=== PATIENT | male | born 1960 | race Caucasian/White ===

== ENCOUNTER → 2023-07-26 09:42 | Outpatient (REF) | payer OTHER, SELFPAY | LOC: HWRAD 09:42 | PROVIDERS: ATTENDING PHYSICIAN Student in an Organized Health Care Education/Training Program | DX: F17.210 Nicotine dependence, cigarettes, uncomplicated (principal) | CPT/HCPCS: 71271 ==

== ENCOUNTER → 2023-08-27 06:37 | Day surgery (SDC) | payer OTHER, SELFPAY | LOC: GI 06:37 | PROVIDERS: ATTENDING PHYSICIAN Internal Medicine | DX: Z12.11 Encounter for screening for malignant neoplasm of colon (principal); K57.30 Diverticulosis of large intestine without perforation or abscess without bleeding; D12.0 Benign neoplasm of cecum; D12.2 Benign neoplasm of ascending colon; D12.3 Benign neoplasm of transverse colon; D12.5 Benign neoplasm of sigmoid colon; D12.8 Benign neoplasm of rectum | CPT/HCPCS: 45385; 45381; 45380; 88305 ==

== ENCOUNTER 2023-09-17 06:32 | Day surgery (SDC) | payer OTHER, SELFPAY ==
[2023-09-17 10:10] VITALS: BMI 24.3
[2023-09-17 10:11] VITALS: BP 155/99; BMI 24.3
[2023-09-17 12:02] VITALS: BP 138/94
[2023-09-17 12:15] VITALS: BP 168/110
[2023-09-17 12:25] VITALS: BP 172/106
== END 2023-09-17 12:30 | disposition home or self-care (01) ==
LOC: SDS 06:32
PROVIDERS: ATTENDING PHYSICIAN Internal Medicine Gastroenterology
DX: C18.4 Malignant neoplasm of transverse colon (principal); D12.2 Benign neoplasm of ascending colon; D12.3 Benign neoplasm of transverse colon; D12.5 Benign neoplasm of sigmoid colon; K57.30 Diverticulosis of large intestine without perforation or abscess without bleeding; K64.0 First degree hemorrhoids
CPT/HCPCS: 45390; 45385; 88305; 88342

== ENCOUNTER → 2023-10-04 12:19 | Outpatient (REF) | payer OTHER, SELFPAY | LOC: HWRAD 12:19 | PROVIDERS: ATTENDING PHYSICIAN Surgery; FAMILY PHYSICIAN Student in an Organized Health Care Education/Training Program | DX: C18.9 Malignant neoplasm of colon, unspecified (principal) | CPT/HCPCS: 74177; Q9967 ==

== ENCOUNTER 2023-10-31 06:03 | Inpatient (IN) | payer OTHER, SELFPAY ==
[2023-10-23 08:33] VITALS: BMI 25.4
[2023-10-23 09:30] LABS: Hematocrit 42.3 % (39.0-52.0); Hemoglobin 14.3 g/dL (13.0-18.0); Mean Corp Hgb Conc. 33.8 g/dL (33.0-37.0); Mean Corpuscular Hgb 33.5 pg (27.0-31.0); Mean Corpuscular Volume 99.1 fL (80.0-94.0); Mean Platelet Volume 10.4 fL (7.4-10.4); Platelet Count 147 10^3/uL (130-400); Red Blood Cell Count 4.27 10^6/uL (4.70-6.10); Red Cell Dist. Width 13.1 % (11.5-14.5); White Blood Cell Count 7.1 10^3/uL (4.8-10.8)
[2023-10-23 09:34] LABS: INR 1.07; PT 13.9 Sec (11.4-14.6)
[2023-10-23 09:35] LABS: APTT 29.8 Sec (23.4-35.0)
[2023-10-23 10:24] LABS: ALT (SGPT) 19 U/L (0-50); AST (SGOT) 29 U/L (17-59); Albumin 4.6 g/dl (3.5-5.0); Alkaline Phosphatase 89 U/L (38-126); Blood Urea Nitrogen 12 mg/dl (9-20); Calcium 9.7 mg/dl (8.4-10.2); Carbon Dioxide 25 mmol/L (22-30); Chloride 103 mmol/L (98-107); Estimated Creatinine Clearance 90 ml/min; Glucose 88 mg/dl (70-99); Potassium 4.7 mmol/L (3.5-5.1); Sodium 138 mmol/L (135-145); Total Bilirubin 0.8 mg/dl (0.2-1.3); Total Protein 7.9 g/dl (6.3-8.2); eGFR > 60.00
[2023-10-23 11:09] LABS: Glycohemoglobin (HgbA1c) 5.5 % (4.0-5.6)
[2023-10-31] VITALS (11 sets, daily range): BP systolic 118–166; BP diastolic 73–96; BMI 26.0
[2023-10-31] MEDS: NEURONTIN 600 MG PO (06:37)
[2023-10-31] MEDS: ENTEREG 12 MG PO (06:37)
[2023-10-31] MEDS: TYLENOL 1000 MG PO (06:37)
[2023-10-31] MEDS: HEPARIN 5000 UNITS SC (06:39)
[2023-10-31] MEDS: NORMOSOL-R 1000 IV ×2 (07:00→15:00)
--- NOTE | 2023-10-31 14:01 | W.IMMPOSTOP ---
Addendum entered and electronically signed by Kevin Salgado MD 10/31/23 14:31:
Updated pateint's [id number], Rosalba, via phone conversation.
Original Note:
Surgical Immed Post Op Note
-
Primary Surgeon: Marti Salgado MD
Assisting Surgeon: ANA Lucero
Pre-op Diagnosis: transverse colon cancer
Post-op Diagnosis: same
Procedure Performed: 1) robotic left colectomy 2) takedown splenic flexure
Anesthesia Type: general plus local
Specimen / Cultures: left colon with stitch marking likely former tumor site
Estimated Blood Loss: 150 cc
Complications: no immediate
Operative Findings: 1) distal transverse colon tattoo with associated mucosal puckering 2) no obvious intraperitoneal or liver metastases 3) friable tissues
Subramanian in bladder.
Will send to med surg.
Colon Resection
Colon Resection
Operation performed with curative intent: Yes
Tumor Location: Transverse Colon
Splenic Flexure Resection: Middle and ascending left colic
[2023-10-31 15:13] LABS: % Basophils 0.1 % (0-2); % Eosinophils 0.1 % (0-6); % Immature Granulocytes 0.4 % (0-0.5); % Monocytes 3.2 % (1.7-9.3); % Neutrophils 91.2 % (42.2-75.2); Absolute Lymphocytes 0.5 10^3/uL (1.2-3.4); Absolute Monocytes 0.3 10^3/uL (0.1-0.6); Absolute Neutrophils 9.1 10^3/uL (1.4-6.5); Hematocrit 39.9 % (39.0-52.0); Mean Corp Hgb Conc. 35.1 g/dL (33.0-37.0); Mean Corpuscular Volume 96.8 fL (80.0-94.0); Mean Platelet Volume 10.3 fL (7.4-10.4); Nucleated Red Blood Cells % 0 % (-); Platelet Count 169 10^3/uL (130-400); Red Blood Cell Count 4.12 10^6/uL (4.70-6.10); Red Cell Dist. Width 13.3 % (11.5-14.5)
[2023-10-31 15:14] LABS: Blood Urea Nitrogen 14 mg/dl (9-20); Calcium 8.2 mg/dl (8.4-10.2); Carbon Dioxide 25 mmol/L (22-30); Chloride 102 mmol/L (98-107); Estimated Creatinine Clearance 78 ml/min; Glucose 150 mg/dl (70-99); Magnesium 1.9 mg/dl (1.6-2.3); Sodium 136 mmol/L (135-145); eGFR > 60.00
[2023-10-31] MEDS: TORADOL 10 MG IV ×2 (15:40→21:32)
--- NOTE | 2023-10-31 15:52 | SUR.PHASEI ---
Patient stable in PACU, Unable to transfer as floor RN busy. Sean Negron BARIATRIC PROGRAM COORDINATOR.
--- NOTE | 2023-10-31 16:34 | PTCARENOTE ---
Pt arrived to [facility] from PACU s/p Robotic L colectomy. Pt has 3 lap sites, and 1 transverse on lower abdomen, all MARY and C/D/I. Subramanian draining clear, yellow urine, IVF infusing. Pt oriented to call hill and room, bed in lowest position and
locked, call hill within reach.
[2023-10-31] MEDS: TYLENOL 650 MG PO (17:04)
[2023-10-31] MEDS: TYLENOL PO ×2 (20:31→23:54)
[2023-11-01] VITALS (7 sets, daily range): BP systolic 134–187; BP diastolic 83–109; BMI 26.4
[2023-11-01] MEDS: TUMS 2 TABLET PO (03:42)
[2023-11-01] MEDS: NORMOSOL-R 1000 IV ×2 (03:42→14:54)
[2023-11-01] MEDS: TORADOL 10 MG IV ×4 (03:43→21:33)
[2023-11-01] MEDS: TYLENOL PO ×2 (03:45→16:59)
[2023-11-01 05:49] LABS: % Basophils 0.1 % (0-2); % Immature Granulocytes 0.2 % (0-0.5); % Lymphocytes 9.8 % (20.5-51.1); % Monocytes 7.5 % (1.7-9.3); % Neutrophils 82.4 % (42.2-75.2); Absolute Monocytes 0.8 10^3/uL (0.1-0.6); Absolute Neutrophils 8.7 10^3/uL (1.4-6.5); Hematocrit 35.6 % (39.0-52.0); Hemoglobin 12.8 g/dL (13.0-18.0); Mean Corpuscular Hgb 34.8 pg (27.0-31.0); Mean Corpuscular Volume 96.7 fL (80.0-94.0); Mean Platelet Volume 10.3 fL (7.4-10.4); Nucleated Red Blood Cells % 0 % (-); Platelet Count 149 10^3/uL (130-400); Red Blood Cell Count 3.68 10^6/uL (4.70-6.10); Red Cell Dist. Width 13.2 % (11.5-14.5); White Blood Cell Count 10.6 10^3/uL (4.8-10.8)
[2023-11-01 06:15] LABS: Blood Urea Nitrogen 18 mg/dl (9-20); Calcium 8.3 mg/dl (8.4-10.2); Carbon Dioxide 24 mmol/L (22-30); Chloride 103 mmol/L (98-107); Estimated Creatinine Clearance 95 ml/min; Glucose 115 mg/dl (70-99); Magnesium 2.2 mg/dl (1.6-2.3); Potassium 4.2 mmol/L (3.5-5.1); Sodium 136 mmol/L (135-145); eGFR > 60.00
[2023-11-01] MEDS: TYLENOL 650 MG PO ×3 (08:33→20:04)
[2023-11-01] MEDS: ENTEREG 12 MG PO ×2 (08:33→20:04)
[2023-11-01] MEDS: PROTONIX 40 MG PO (08:34)
[2023-11-01] MEDS: ZESTRIL 10 MG PO (08:34)
--- NOTE | 2023-11-01 10:13 | W.PN.CRS1 ---
Today's Communication / Plan
-
N.p.o. chips and sips
Incentive spirometry
Lovenox
DC Subramanian
Assessment/Plan
-
POD#1 1) robotic left colectomy 2) takedown splenic flexure
1. Vitals and labs normal.
2. Out of bed as tolerated.
3. Continue n.p.o. with chips and sips given belching.
4. Pain control: Tylenol and Toradol standing, Dilaudid as needed.
5. Discontinue Subramanian.
6. Lovenox to start tonight for DVT prophylaxis. Teds and SCDs in place.
7. OR pathology pending.
8. I have asked the nurse to encourage incentive spirometer as he is a smoker.
9. Continue IV fluids while NPO.
Subjective Data
Procedure
10/31/2023- 1) robotic left colectomy 2) takedown splenic flexure
Subjective Data
Date of Service: November 01, 2023
Patient states he is feeling okay. He has moderate pain. He is not that hungry. He has been burping a lot. He does not have bowel function yet.
Objective Data
-
Vital Signs
Temp Pulse Resp BP Pulse Ox
98.7 F 85 19 178/95 97
11/01/23 07:29 11/01/23 07:29 11/01/23 07:29 11/01/23 07:29 11/01/23 07:29
Intake & Output
10/31/23 11/01/23 11/02/23
06:59 06:59 06:59
Intake Total 303 / 303
Output Total 870 / 870
Balance -567 / -567
Intake:
Oral fluids 133 / 133
IV fluids (Total) 170 / 170
Normosol-R 1,000 ml @ 80 mls/hr 120 / 120
IV .[id number] [facility] Rx#:[id number]
norm 50 / 50
Output:
Urine, Subramanian 870 / 870
Lab Results
11/01/23 04:43
11/01/23 04:43
Physical Exam
-
General: No Acute Distress and AOx3
Abdomen: Soft, Non Distended and Non Tender
Incision: Clear, Dry, Intact
[2023-11-01] MEDS: ZOFRAN 4 MG IV (10:36)
--- NOTE | 2023-11-01 11:05 | CM ---
Met with patient at the bedside; initial assessment completed
[facility] [address]
Patient reported he lives with his significant other in a split level home; 10 steps to enter; 5 steps between floors; powder room on lower level of the home; bathroom on the upper level; bathroom has tub w/shower, grab bar and shower chair
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
DME: none
SNF/Home Health utilization history: none
Transportation: step-daughter will provide ride home
Plan: Discharge to home when medically stable; declined VN
[2023-11-01] MEDS: APRESOLINE 10 MG IV (13:14)
--- NOTE | 2023-11-01 16:35 | PTCARENOTE ---
Inserted a 16F [place] Sump NGT into Pt's right nare on second attempt. Pt started vomiting on first attempt. NGT draining clear pale brown fluid. Pt stated ' I am already feeling less nauseous, and have less pain'. Pt instructed on plan of care. Pt
verbalized understanding of instructions. Call hill is within reach. Will conintue to monitor closely. VSS, pt is afebrile.
[2023-11-01] MEDS: LOVENOX 40 MG SC (18:26)
--- NOTE | 2023-11-01 22:07 | PTCARENOTE ---
Pt ref to use IS, stated that was what precipitated vomiting earlier. Education provided regarding use of IS post op. Pt verbalized understanding but refused to use IS. Assessment ongoing.
[2023-11-02] MEDS: TYLENOL 650 MG PO ×2 (00:48→03:21)
[2023-11-02] MEDS: NORMOSOL-R 1000 IV ×2 (01:52→12:04)
[2023-11-02] MEDS: TORADOL 10 MG IV ×4 (03:20→22:16)
[2023-11-02 05:21] VITALS: BMI 24.7
[2023-11-02 07:40] LABS: % Basophils 0.1 % (0-2); % Immature Granulocytes 0.4 % (0-0.5); % Lymphocytes 10.9 % (20.5-51.1); % Monocytes 6.6 % (1.7-9.3); Absolute Immature Granulocytes 0.1 10^3/uL (0-0.05); Absolute Lymphocytes 1.2 10^3/uL (1.2-3.4); Absolute Monocytes 0.8 10^3/uL (0.1-0.6); Absolute Neutrophils 9.3 10^3/uL (1.4-6.5); Hematocrit 34.4 % (39.0-52.0); Hemoglobin 12.1 g/dL (13.0-18.0); Mean Corp Hgb Conc. 35.2 g/dL (33.0-37.0); Mean Corpuscular Hgb 33.5 pg (27.0-31.0); Mean Corpuscular Volume 95.3 fL (80.0-94.0); Mean Platelet Volume 10.5 fL (7.4-10.4); Nucleated Red Blood Cells % 0 % (-); Platelet Count 156 10^3/uL (130-400); Red Blood Cell Count 3.61 10^6/uL (4.70-6.10); Red Cell Dist. Width 13.5 % (11.5-14.5); White Blood Cell Count 11.3 10^3/uL (4.8-10.8)
[2023-11-02 07:54] VITALS: BP 144/89
[2023-11-02 07:54] LABS: Blood Urea Nitrogen 26 mg/dl (9-20); Calcium 8.9 mg/dl (8.4-10.2); Carbon Dioxide 35 mmol/L (22-30); Chloride 97 mmol/L (98-107); Estimated Creatinine Clearance 86 ml/min; Glucose 119 mg/dl (70-99); Potassium 3.4 mmol/L (3.5-5.1); Sodium 139 mmol/L (135-145); eGFR > 60.00
[2023-11-02] MEDS: PROTONIX IV 40 MG IV (08:15)
[2023-11-02] MEDS: NSS (PRESERVATIVE FREE) 10 ML IV (08:15)
[2023-11-02] MEDS: TYLENOL PO ×2 (08:18→12:04)
[2023-11-02] MEDS: ZESTRIL PO (08:36)
[2023-11-02] MEDS: ENTEREG PO ×2 (08:36→21:00)
--- NOTE | 2023-11-02 15:04 | W.PN.CRS1 ---
Addendum entered and electronically signed by Jaciel Wade MD 11/02/23 15:23:
I saw and examined the patient.
The Manager [employer]'s note was reviewed and I agree with the note.
Comment: NGT placed yesterday amanda for vomiting/belching. Nausea improved today with NGT to suction. Several liters drained. Feels better today. Abd exam approp, incisions cdi. Plan to cont NGT decompression for now, await ROBF. IVF/NPO, PRN
antiemetics and pain meds. K replaced.
Original Note:
Today's Communication / Plan
-
Continue NPO with NGT
Assessment/Plan
-
63 yo male with h/o transverse colon ca now POD #2 robotic left colectomy
AFVSS
h/h stable post operatively, mild dilutional acute anemia noted
Electrolyte abnormalities
Ileus present with placement of NGT yesterday evening for nearly 4L of output with improvement in pain and nausea s/p placement
Await bowel recovery, no passage of flatus as of yet
--NPO with NGT to suction
--Hold Po meds
--IV hydralazine prn HTN while off lisinopril
--Multimodal analgesics
--C/W IVF. Changed to D5 1/2 NSS with 40mEQ of Kcl given hypokalemia
--OOB/Ambulate. PT consulted
--PPI for GI ppx
--VTE ppx with lovenox sq and SCD's
Subjective Data
Procedure
10/31/2023- 1) robotic left colectomy 2) takedown splenic flexure
Subjective Data
Date of Service: November 02, 2023
Patient seen and examined at bedside with Dr. Wade. N/V late yesterday afternoon with hiccups: resolved since placement of NGT. No passage of flatus. Abdominal pain improved since passage of flatus. Reports dry mouth.
Objective Data
-
Vital Signs
Temp Pulse Resp BP Pulse Ox
98.3 F 89 18 144/89 94
11/02/23 07:54 11/02/23 07:54 11/02/23 07:54 11/02/23 07:54 11/02/23 07:54
Intake & Output
11/01/23 11/02/23 11/03/23
06:59 06:59 06:59
Intake Total 303 / 303 2720 / 2720
Output Total 870 / 870 5300 / 5300
Balance -567 / -567 -2580 / -2580
Intake:
Oral fluids 133 / 133 480 / 480
IV fluids (Total) 170 / 170 2120 / 2120
Normosol-R 1,000 ml @ 80 mls/hr 120 / 120
IV .[id number] [facility] Rx#:[id number]
norm 50 / 50
Amount instilled into GI Tube ( 120 / 120
Total)
[place] Sump 120 / 120
Output:
Gastrointestinal tube output ( 3700 / 3700
Total)
[place] Sump 3700 / 3700
Urine, Subramanian 870 / 870 350 / 350
Urine, Voided 1250 / 1250
Lab Results
11/02/23 07:11
11/02/23 07:10
Physical Exam
-
General: No Acute Distress and AOx3
Abdomen: Soft, Distended (mild), Non Tender and Other (NGT with light brown outputs)
Skin: Warm and Dry
Incision: Clear, Dry, Intact
[2023-11-02 15:52] VITALS: BP 151/88
[2023-11-02] MEDS: OFIRMEV 100 IV (16:00)
[2023-11-02] MEDS: D5/0.45%NSS with KCL 40 MEQ 1000 IV (16:05)
[2023-11-02] MEDS: LOVENOX 40 MG SC (17:29)
[2023-11-03] MEDS: OFIRMEV 100 IV ×3 (00:19→11:02)
[2023-11-03] MEDS: D5/0.45%NSS with KCL 40 MEQ 1000 IV ×3 (02:59→21:49)
[2023-11-03] MEDS: TORADOL 10 MG IV ×4 (04:24→21:49)
[2023-11-03 06:03] LABS: Hematocrit 30.3 % (39.0-52.0); Hemoglobin 10.7 g/dL (13.0-18.0); Mean Corp Hgb Conc. 35.3 g/dL (33.0-37.0); Mean Corpuscular Hgb 33.9 pg (27.0-31.0); Mean Corpuscular Volume 95.9 fL (80.0-94.0); Mean Platelet Volume 10.4 fL (7.4-10.4); Platelet Count 143 10^3/uL (130-400); Red Blood Cell Count 3.16 10^6/uL (4.70-6.10); Red Cell Dist. Width 13.4 % (11.5-14.5); White Blood Cell Count 9.5 10^3/uL (4.8-10.8)
[2023-11-03 06:21] LABS: Blood Urea Nitrogen 35 mg/dl (9-20); Calcium 8.5 mg/dl (8.4-10.2); Carbon Dioxide 31 mmol/L (22-30); Chloride 101 mmol/L (98-107); Estimated Creatinine Clearance 86 ml/min; Glucose 121 mg/dl (70-99); Potassium 3.8 mmol/L (3.5-5.1); Sodium 137 mmol/L (135-145); eGFR > 60.00
[2023-11-03] MEDS: ENTEREG PO ×2 (07:10→19:22)
[2023-11-03 07:41] VITALS: BP 132/85
[2023-11-03] MEDS: NSS (PRESERVATIVE FREE) 10 ML IV (08:22)
[2023-11-03] MEDS: PROTONIX IV 40 MG IV (08:22)
--- NOTE | 2023-11-03 12:38 | W.PN.CRS1 ---
Addendum entered and electronically signed by Jaciel Wade MD 11/03/23 12:49:
I saw and examined the patient.
The Eye[employer]'s note was reviewed and I agree with the note.
Comment: Passing flatus. Denies n/v. Exam with minimal distention, no ttp, incisions cdi. Will attempt clamp trial.
Original Note:
Today's Communication / Plan
-
Clamp trial of NGT
Assessment/Plan
-
63 yo male with h/o transverse colon ca now POD #3 robotic left colectomy
AFVSS
Mild acute anemia noted. Drift in h/h from 12.1 to 10.7 likely secondary to hemodilution and expected losses
Electrolyte abnormalities improved with change in IVF
Resolving ileus. NGT with light gastric outputs, now passing flatus
--Clamp trial of NGT today, if able to remove will provide with sips of clears
--Hold Po meds
--IV hydralazine prn HTN while off lisinopril
--Multimodal analgesics
--C/W IVF
--OOB/Ambulate
--PPI for GI ppx
--VTE ppx with lovenox sq and SCD's
Subjective Data
Procedure
10/31/2023- 1) robotic left colectomy 2) takedown splenic flexure
Subjective Data
Date of Service: November 03, 2023
Patient seen and examined at bedside with Dr. Wade. Denies n/v. Passed a little flatus overnight. No BM as of yet. Pain improving.
Objective Data
-
Vital Signs
Temp Pulse Resp BP Pulse Ox
98.8 F 82 16 132/85 96
11/03/23 07:41 11/03/23 07:41 11/03/23 07:41 11/03/23 07:41 11/03/23 08:00
Intake & Output
11/02/23 11/03/23 11/04/23
06:59 06:59 06:59
Intake Total 2720 / 2720 2680 / 2680 100 / 100
Output Total 5300 / 5300 2675 / 2675
Balance -2580 / -2580 5 / 5 100 / 100
Intake:
Oral fluids 480 / 480
IV fluids (Total) 2120 / 2120 2200 / 2200
IV piggybacks 300 / 300 100 / 100
Amount instilled into GI Tube ( 120 / 120 180 / 180
Total)
[place] Sump 120 / 120 180 / 180
Output:
Gastrointestinal tube output ( 3700 / 3700 1200 / 1200
Total)
[place] Sump 3700 / 3700 1200 / 1200
Urine, Subramanian 350 / 350
Urine, Voided 1250 / 1250 1475 / 1475
Other:
Number of approximated MODERATE 3
amounts of urine
Lab Results
11/03/23 05:25
11/03/23 05:25
Physical Exam
-
General: No Acute Distress and AOx3
Abdomen: Soft, Distended (mild), Non Tender and Other (NGT with light gastric outputs)
Skin: Warm and Dry
Incision: Clear, Dry, Intact
[2023-11-03 14:56] VITALS: BP 132/72
--- NOTE | 2023-11-03 15:58 | PTCARENOTE ---
NGT discontinued per nursing to place order; Patient denies nausea/vomiting at this time
[2023-11-03] MEDS: LOVENOX 40 MG SC (17:20)
[2023-11-03] MEDS: DILAUDID 0.25 MG IV (19:35)
[2023-11-03 23:29] VITALS: BP 144/98
[2023-11-03] MEDS: APRESOLINE 10 MG IV (23:38)
[2023-11-04 01:40] VITALS: BP 130/78
[2023-11-04] MEDS: DILAUDID 0.5 MG IV (02:07)
[2023-11-04] MEDS: TORADOL 10 MG IV ×4 (03:07→22:41)
[2023-11-04 05:15] VITALS: BMI 24.9
[2023-11-04] MEDS: ENTEREG PO (07:00)
[2023-11-04 07:11] VITALS: BP 147/96
[2023-11-04] MEDS: D5/0.45%NSS with KCL 40 MEQ 1000 IV ×2 (07:41→17:09)
[2023-11-04] MEDS: PROTONIX IV 40 MG IV (07:43)
[2023-11-04] MEDS: NSS (PRESERVATIVE FREE) 10 ML IV (07:43)
[2023-11-04] MEDS: DILAUDID 0.25 MG IV ×3 (07:50→23:00)
[2023-11-04 08:11] VITALS: BP 147/96
[2023-11-04 08:35] LABS: Hematocrit 37.6 % (39.0-52.0); Hemoglobin 13.3 g/dL (13.0-18.0); Mean Corp Hgb Conc. 35.4 g/dL (33.0-37.0); Mean Corpuscular Hgb 34.4 pg (27.0-31.0); Mean Corpuscular Volume 97.2 fL (80.0-94.0); Mean Platelet Volume 10.8 fL (7.4-10.4); Platelet Count 179 10^3/uL (130-400); Red Blood Cell Count 3.87 10^6/uL (4.70-6.10); Red Cell Dist. Width 13.2 % (11.5-14.5); White Blood Cell Count 10.1 10^3/uL (4.8-10.8)
[2023-11-04 09:20] LABS: Blood Urea Nitrogen 33 mg/dl (9-20); Calcium 9.1 mg/dl (8.4-10.2); Carbon Dioxide 24 mmol/L (22-30); Chloride 104 mmol/L (98-107); Estimated Creatinine Clearance 95 ml/min; Glucose 139 mg/dl (70-99); Potassium 4.2 mmol/L (3.5-5.1); Sodium 138 mmol/L (135-145); eGFR > 60.00
--- NOTE | 2023-11-04 10:35 | W.PN.CRS1 ---
Today's Communication / Plan
-
clears
increase diluadid to q3h prn
Assessment/Plan
-
63 yo male with h/o transverse colon ca now POD #4 robotic left colectomy
AFVSS
Hgb up to 13.1 from 10.7
NGT removed 11/02
--Advance diet to clears
--Okay for po meds
--IV hydralazine prn HTN while off lisinopril
--Multimodal analgesics - increase Dilaudid from q4 PRN to q3 PRN
--C/W IVF until tolerating clears
--OOB/Ambulate
--PPI for GI ppx
--VTE ppx with lovenox sq and SCD's
Subjective Data
Procedure
10/31/2023- 1) robotic left colectomy 2) takedown splenic flexure
Subjective Data
Date of Service: November 04, 2023
Patient states he still has some abdominal pain. He has no nausea or vomiting. He has bowel movements that are dark but no blood. He has flatus.
Objective Data
-
Vital Signs
Temp Pulse Resp BP Pulse Ox
98.5 F 93 18 147/96 96
11/04/23 07:11 11/04/23 07:11 11/04/23 07:11 11/04/23 07:11 11/04/23 08:00
Intake & Output
11/03/23 11/04/23 11/05/23
06:59 06:59 06:59
Intake Total 2680 / 2680 2530 / 2530
Output Total 2675 / 2675 75 / 75
Balance 5 / 5 2455 / 2455
Intake:
IV fluids (Total) 2200 / 2200 2400 / 2400
IV piggybacks 300 / 300 100 / 100
Amount instilled into GI Tube ( 180 / 180 30 / 30
Total)
[place] Sump 180 / 180 30 / 30
Output:
Gastrointestinal tube output ( 1200 / 1200 75 / 75
Total)
[place] Sump 1200 / 1200 75 / 75
Urine, Voided 1475 / 1475
Other:
Number of approximated SMALL 2
amounts of urine
Number of approximated MODERATE 3
amounts of urine
Number of approximated LARGE 2
amounts of urine
Lab Results
11/04/23 08:02
11/04/23 08:02
Physical Exam
-
General: No Acute Distress and AOx3
Abdomen: Soft, Non Distended and Non Tender
Skin: Warm and Dry
Incision: Clear, Dry, Intact
--- NOTE | 2023-11-04 14:29 | CM ---
Discharge Plan of Care: Home with no needs. Declined VN.
[2023-11-04 15:20] VITALS: BP 152/98
[2023-11-04] MEDS: APRESOLINE 10 MG IV ×2 (15:49→22:55)
[2023-11-04] MEDS: LOVENOX 40 MG SC (17:08)
[2023-11-04] MEDS: ENTEREG 12 MG PO (19:34)
[2023-11-04 23:10] VITALS: BP 161/98
[2023-11-05 01:26] VITALS: BP 150/86
[2023-11-05] MEDS: TORADOL 10 MG IV ×2 (03:06→11:07)
[2023-11-05] MEDS: D5/0.45%NSS with KCL 40 MEQ IV (03:11)
[2023-11-05 06:00] VITALS: BMI 25.4
[2023-11-05 06:07] LABS: % Basophils 0.4 % (0-2); % Eosinophils 4.6 % (0-6); % Immature Granulocytes 0.5 % (0-0.5); % Monocytes 11.8 % (1.7-9.3); % Neutrophils 65.7 % (42.2-75.2); Absolute Eosinophils 0.3 10^3/uL (0-0.7); Absolute Monocytes 0.7 10^3/uL (0.1-0.6); Absolute Neutrophils 3.7 10^3/uL (1.4-6.5); Hematocrit 34.4 % (39.0-52.0); Mean Corp Hgb Conc. 34.9 g/dL (33.0-37.0); Mean Corpuscular Hgb 34.7 pg (27.0-31.0); Mean Corpuscular Volume 99.4 fL (80.0-94.0); Mean Platelet Volume 11.2 fL (7.4-10.4); Nucleated Red Blood Cells % 0 % (-); Platelet Count 189 10^3/uL (130-400); Red Blood Cell Count 3.46 10^6/uL (4.70-6.10); Red Cell Dist. Width 13.4 % (11.5-14.5); White Blood Cell Count 5.7 10^3/uL (4.8-10.8)
[2023-11-05 06:37] LABS: Blood Urea Nitrogen 34 mg/dl (9-20); Calcium 8.7 mg/dl (8.4-10.2); Carbon Dioxide 23 mmol/L (22-30); Chloride 108 mmol/L (98-107); Estimated Creatinine Clearance 86 ml/min; Glucose 112 mg/dl (70-99); Potassium 4.7 mmol/L (3.5-5.1); Sodium 138 mmol/L (135-145); eGFR > 60.00
[2023-11-05 07:15] VITALS: BP 154/88
[2023-11-05] MEDS: NSS (PRESERVATIVE FREE) 10 ML IV (08:29)
[2023-11-05] MEDS: ENTEREG 12 MG PO ×2 (08:29→22:26)
[2023-11-05] MEDS: PROTONIX IV 40 MG IV (08:29)
--- NOTE | 2023-11-05 10:27 | W.PN.CRS1 ---
Today's Communication / Plan
-
fulls
restart lisinopril
Assessment/Plan
-
63 yo male with h/o transverse colon ca now POD #5 robotic left colectomy
AFVSS
NGT removed 11/02
--Advance diet to fulls
--Okay for po meds
--Restart lisinopril
--Multimodal analgesics - increase Dilaudid from q4 PRN to q3 PRN
--C/W IVF until tolerating clears
--OOB/Ambulate
--PPI for GI ppx
--VTE ppx with lovenox sq and SCD's
Subjective Data
Procedure
10/31/2023- 1) robotic left colectomy 2) takedown splenic flexure
Subjective Data
Date of Service: November 05, 2023
Patient states he has bowel movements. His pain is much better today. He tolerated clears. He is urinating without difficulty. He no longer has hiccups.
Objective Data
-
Vital Signs
Temp Pulse Resp BP Pulse Ox
98.0 F 96 18 154/88 96
11/05/23 07:15 11/05/23 07:15 11/05/23 07:15 11/05/23 07:15 11/05/23 08:00
Intake & Output
11/04/23 11/05/23 11/06/23
06:59 06:59 06:59
Intake Total 2530 / 2530 2700 / 2700
Output Total 75 / 75
Balance 2455 / 2455 2700 / 2700
Intake:
Oral fluids 1500 / 1500
IV fluids (Total) 2400 / 2400 1200 / 1200
IV piggybacks 100 / 100
Amount instilled into GI Tube ( 30 / 30
Total)
[place] Sump 30 / 30
Output:
Gastrointestinal tube output (
Total)
[place] Sump 75 /
Other:
Number of approximated SMALL 2
amounts of urine
Number of approximated MODERATE 3 2
amounts of urine
Number of approximated LARGE 2
amounts of urine
Lab Results
11/05/23 04:33
11/05/23 04:33
Physical Exam
-
General: No Acute Distress and AOx3
Abdomen: Soft, Non Distended and Non Tender
Skin: Warm and Dry
Incision: Clear, Dry, Intact
[2023-11-05] MEDS: ZESTRIL 10 MG PO (11:08)
--- NOTE | 2023-11-05 13:37 | CM ---
Discharge Plan of Care: Home with no needs. Declined VN services.
[2023-11-05 15:10] VITALS: BP 143/93
[2023-11-05] MEDS: APRESOLINE 10 MG IV (16:03)
[2023-11-05] MEDS: LOVENOX 40 MG SC (17:42)
[2023-11-05] MEDS: ROXICODONE 5 MG PO ×2 (17:44→23:36)
[2023-11-05 23:15] VITALS: BP 145/91
--- NOTE | 2023-11-06 04:28 | DOWNTIME ---
There was a [employer] Client [employer]osive Expert Downtime on 11/06/2023 from 0100 to 11/06/2023 at 0255. Downtime documentation of patient's care, including medication administrations, has been reconciled in the electronic record per guidelines. Refer to the
patient's paper chart under the miscellaneous tab to see printed paper medication records and downtime forms.
[2023-11-06 05:55] VITALS: BMI 25.7
[2023-11-06 06:00] VITALS: BMI 25.7
[2023-11-06 07:35] VITALS: BP 135/80
[2023-11-06] MEDS: PROTONIX IV 40 MG IV (07:36)
[2023-11-06] MEDS: ZESTRIL 10 MG PO (07:37)
[2023-11-06] MEDS: ENTEREG 12 MG PO (07:37)
[2023-11-06] MEDS: NSS (PRESERVATIVE FREE) 10 ML IV (07:37)
--- NOTE | 2023-11-06 09:34 | W.PN.CRS1 ---
Today's Communication / Plan
-
low residue
Assessment/Plan
-
63 yo male with h/o transverse colon ca now POD #6 robotic left colectomy
AFVSS
NGT removed 11/02
--Advance diet to low residue
--Okay for po meds
--Multimodal analgesics - increase Dilaudid from q4 PRN to q3 PRN
--C/W IVF until tolerating clears
--OOB/Ambulate
--PPI for GI ppx
--VTE ppx with lovenox sq and SCD's
-- Possible d/c home later today
Subjective Data
Procedure
10/31/2023- 1) robotic left colectomy 2) takedown splenic flexure
Subjective Data
Date of Service: November 06, 2023
Patient states his pain is controlled. He was bloated last night but it resolved. He has no nausea or vomiting. He is tolerating fulls and is hungry.
Objective Data
-
Vital Signs
Temp Pulse Resp BP Pulse Ox
98.4 F 86 14 135/80 96
11/06/23 07:35 11/06/23 07:35 11/06/23 07:35 11/06/23 07:35 11/06/23 08:00
Intake & Output
11/05/23 11/06/23 11/07/23
06:59 06:59 06:59
Intake Total 2700 / 2700 1260 / 1260
Balance 2700 / 2700 1260 / 1260
Intake:
Oral fluids 1500 / 1500 1260 / 1260
IV fluids (Total) 1200 / 1200
Other:
Number of approximated MODERATE 2 2 3
amounts of urine
Lab Results
11/05/23 04:33
11/05/23 04:33
Physical Exam
-
General: No Acute Distress and AOx3
Abdomen: Soft, Non Distended and Non Tender
Skin: Warm and Dry
Incision: Clear, Dry, Intact
--- NOTE | 2023-11-06 12:10 | CM ---
Addendum entered by Kyleigh Combs RN 11/06/23 14:52:
Pt tolerated diet.
DC to home
Declined VN .
Rosalba drove him home.
Home no needs .
Original Note:
Post op
Advanced to low residual diet . Will need to tolerate for dc.
Offered Vn he declined need.
Family to drive him home.
PLAN Home no needs
--- NOTE | 2023-11-06 13:17 | W.DCSUMMARY ---
Discharge Summary
Discharge Data
Date of Admission: 10/31/23
Date of Discharge: 11/06/23
-
Pending Results: Yes
Additional Pending Results:
pathology
Discharge Plan
-
Patient Disposition: Home (Routine Discharge)
Discharge Diagnosis/Procedures: robotic left colectomy
Diet: Low Residue
Activity: No strenuous activity
Additional Activity: No lifting over 10lbs (gallon of milk)
Driving Restrictions: Not until seen by your Dr
Bathing Restrictions: OK to Shower
Wound Care: Allow glue to naturally fall off. Do not pick at incisions.
Instructions: Low Fiber Diet
Referrals:
Kevin Salgado MD [Active] - in two weeks
Heri Vázquez MD, Resident [Family Provider] - in one to two weeks
Additional Discharge Medication Instructions: Tylenol or ibuprofen as needed for pain. Maximum dose of Tylenol is 4000 mg in 24 hours. Maximum dose of ibuprofen is 3200 mg in 24 hours.
Prescriptions:
New
oxycodone 5 mg tablet
5 mg PO Q6H PRN (Reason: Pain) Qty: 20 0RF
Continued
lisinopril 10 mg Tablet
10 mg PO DAILY
cholecalciferol (vitamin D3) [Vitamin D3] 125 mcg (5,000 unit) Tablet
125 mcg PO DAILY
mecobalamin (vitamin B12) [B12 Active] 1,000 mcg Tablet,Chewable
1,000 mcg PO DAILY
nicotine 21 mg/24 hr Patch 24 Hour
1 patch TRANSDERMAL DAILY
Discontinued
Sutab 1.479-0.188- 0.225 gram Tablet
0 tab PO DIRECTED
Rx Instructions:
pre surgery 10/31/2023. Last round of pills swallowed at 2200 10/31/23
Discharge Orders:
Discharge Patient (As Directed); Ordered 11/06/23
Ordered By: Adelina Anne
Discharge Date and Time
Print Language: Tajik
--- NOTE | 2023-11-06 13:19 | W.DS.TRANS ---
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
-
Discharge Instructions:
Sleep Apnea Risk Intermediate
Discharge Diagnosis/Procedures robotic left colectomy
Diet Low Residue
Activity No strenuous activity
Additional Activity No lifting over 10lbs (gallon of milk)
Driving Restrictions Not until seen by your Dr
Bathing Restrictions OK to Shower
Wound Care Allow glue to naturally fall off. Do not pick at
incisions.
Instructions: Low Fiber Diet
Stand-Alone Forms:
Changes to Home Medications: Yes
Discharge Medications:
DC Medications w/original date entered in [employer]
cholecalciferol (vitamin D3) 125 mcg (5,000 unit) tablet (Vitamin D3) 125 mcg PO DAILY Supplement 09/17/23
lisinopril 10 mg tablet 10 mg PO DAILY Blood Pressure 09/17/23
mecobalamin (vitamin B12) 1,000 mcg chewable tablet (B12 Active) 1,000 mcg PO DAILY Supplement 09/17/23
nicotine 21 mg/24 hr daily transdermal patch 1 patch transdermal DAILY Smoking Cessation 10/28/23
oxycodone 5 mg tablet 5 mg PO Q6H PRN Pain #20 tabs 11/06/23
Home Medication Changes
oxycodone 5 mg tablet 5 mg PO Q6H PRN Pain #20 tabs 11/06/23
Pending Results: Yes
Additional Pending Results:
pathology
[2023-11-06 13:24] VITALS: BP 130/79
== END 2023-11-06 13:39 | disposition home or self-care (01) | DRG 330 ==
LOC: 2 SOUTH 06:03
PROVIDERS: Physician Assistant; Registered Nurse; ADMITTING PHYSICIAN Surgery; FAMILY PHYSICIAN Student in an Organized Health Care Education/Training Program
PROC: 0DTG4ZZ Resection of Left Large Intestine, Percutaneous Endoscopic Approach (ICD-10-PCS; 2023-10-31)
DX: C18.4 Malignant neoplasm of transverse colon (principal); K56.7 Ileus, unspecified; I10 Essential (primary) hypertension; E78.5 Hyperlipidemia, unspecified; F17.200 Nicotine dependence, unspecified, uncomplicated; D64.9 Anemia, unspecified; E87.6 Hypokalemia; E87.8 Other disorders of electrolyte and fluid balance, not elsewhere classified; R11.2 Nausea with vomiting, unspecified
CPT/HCPCS: 88309; 36415; 80048; 80053; 83036; 83735; 85025; 85027; 85610; 85730; 86850; 86900; 86901; 93005; 99406; J1335

== ENCOUNTER → 2023-12-04 11:02 | Outpatient (REF) | payer OTHER, SELFPAY | LOC: HWRAD 11:02 | PROVIDERS: ATTENDING PHYSICIAN Student in an Organized Health Care Education/Training Program | DX: R91.8 Other nonspecific abnormal finding of lung field (principal); C18.4 Malignant neoplasm of transverse colon | CPT/HCPCS: 71250 ==

== ENCOUNTER 2024-05-21 06:23 | Day surgery (SDC) | payer OTHER, SELFPAY | END 2024-05-21 10:23 | disposition home or self-care (01) | LOC: GI 06:23 | PROVIDERS: ATTENDING PHYSICIAN Internal Medicine; FAMILY PHYSICIAN Family Medicine | DX: R10.13 Epigastric pain (principal); K29.50 Unspecified chronic gastritis without bleeding; B96.81 Helicobacter pylori [H. pylori] as the cause of diseases classified elsewhere; K26.9 Duodenal ulcer, unspecified as acute or chronic, without hemorrhage or perforation; K31.89 Other diseases of stomach and duodenum | CPT/HCPCS: 43239; 88305; 88342 ==

== ENCOUNTER → 2024-06-12 08:37 | Outpatient (REF) | payer OTHER, SELFPAY | LOC: HWRAD 08:37 | PROVIDERS: ATTENDING PHYSICIAN Internal Medicine Pulmonary Disease; FAMILY PHYSICIAN Orthopaedic Surgery | DX: R91.8 Other nonspecific abnormal finding of lung field (principal) | CPT/HCPCS: 71250 ==

== ENCOUNTER 2024-11-04 06:22 | Day surgery (SDC) | payer OTHER, SELFPAY | END 2024-11-04 12:07 | disposition home or self-care (01) | LOC: GI 06:22 | PROVIDERS: ATTENDING PHYSICIAN Internal Medicine | DX: Z08 Encounter for follow-up examination after completed treatment for malignant neoplasm (principal); K64.9 Unspecified hemorrhoids; D12.3 Benign neoplasm of transverse colon; K57.30 Diverticulosis of large intestine without perforation or abscess without bleeding; Z98.0 Intestinal bypass and anastomosis status; Z86.0100 Personal history of colon polyps, unspecified; Z85.038 Personal history of other malignant neoplasm of large intestine | CPT/HCPCS: 45380; 88305 ==